=== PATIENT | male | born 1990 | race Two or more races ===

== ENCOUNTER 2023-06-05 00:44 | Emergency (ER) | payer OTHER ==
[~2023-06-05] VITALS: Ht 177.8 cm; Wt 147.2 kg
[2023-06-05 01:19] VITALS: BP 150/73; PULSE 70; RESP 18; TEMP 98; O2SAT 95
[2023-06-05] MEDS ORDERED: cefTRIAXone SODIUM 250 MG VL IM ONE (01:30)
[2023-06-05] MEDS ORDERED: AZITHROMYCIN 250 MG TAB PO ONE (01:30)
[2023-06-05] MEDS ORDERED: cefTRIAXone SOD 1,000 MG VL IM ONE (03:00)
[2023-06-05] MEDS ORDERED: DOXY-346 PO (03:00)
[2023-06-05] MEDS ORDERED: BACDST PO (03:04)
== END 2023-06-05 03:52 | disposition home or self-care (01) ==
LOC: ER 00:44
DX: A54.9 Gonococcal infection, unspecified (principal); N39.0 Urinary tract infection, site not specified; Z20.2 Contact with and (suspected) exposure to infections with a predominantly sexual mode of transmission
CPT/HCPCS: 81002; 96372; 99283; J0696